=== PATIENT | male | born 1950 | race Caucasian/White ===

== ENCOUNTER 2022-10-13 18:17 | Emergency (ER) | payer OTHER, MEDICARE, BC ==
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
[2022-10-13] MEDS ORDERED: HYDROcodone/APAP 5 MG/325 MG (LORTAB) TAB PO ONE (18:45)
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
[2022-10-13 19:20] LABS: BILIRUBIN,URINE NEGATIVE (NEGATIVE); CLARITY,URINE CLEAR; COLOR,URINE YELLOW; GLUCOSE, URINE (UA) NEGATIVE (NEGATIVE); KETONES,URINE TRACE (NEGATIVE); LEUKOCYTE ESTERASE ,URINE NEGATIVE (NEGATIVE); NITRITE,URINE NEGATIVE (NEGATIVE); PROTEIN,URINE NEGATIVE (NEGATIVE)
[2022-10-13] MEDS ORDERED: DOXY100T2 PO (19:25)
[2022-10-13] MEDS ORDERED: IBUP-1773 PO (19:25)
[2022-10-13] MEDS ORDERED: ACET-2267 PO (19:25)
[2022-10-13] MEDS ORDERED: OXYC5TAB PO (19:25)
[2022-10-13] MEDS ORDERED: DOXYCYCLINE 100 MG (VIBRAMYCIN) TABLET PO STA (19:25)
[2022-10-13 19:26] LABS: BACTERIA,URINE TRACE /HPF; HYALINE CASTS, URINE RARE /LPF; SQUAMOUS EPITHELIAL CELL,UR 0-2 /HPF; WBC,URINE 0-2 /HPF
[2022-10-13] MEDS ORDERED: IBUPROFEN 600 MG (MOTRIN) TAB PO ONE (19:30)
[2022-10-13 19:35] VITALS: BP 142/95
== END 2022-10-13 19:35 | disposition home or self-care (01) ==
LOC: ER FS 18:20
DX: S27.322A Contusion of lung, bilateral, initial encounter (principal); S20.211A Contusion of right front wall of thorax, initial encounter; V89.2XXA Person injured in unspecified motor-vehicle accident, traffic, initial encounter; Y92.410 Unspecified street and highway as the place of occurrence of the external cause
CPT/HCPCS: 71250; 81000